=== PATIENT | male | born 1975 | race Caucasian/White ===

== ENCOUNTER 2021-11-29 04:10 | Emergency (ER) | payer SELFPAY ==
[~2021-11-29] VITALS: Ht 172.7 cm; Wt 108.9 kg
[2021-11-29 04:23] VITALS: BP 138/84
[2021-11-29] MEDS ORDERED: FLUORESCEIN SODIUM OPHTH 1 EA STRIP ONE ×2 (04:40→04:44)
[2021-11-29] MEDS ORDERED: TETRACAINE HCL 0.5% OPHTALMIC 15 ML BOTTLE OP ONE (05:00)
[2021-11-29] MEDS ORDERED: FLUORESCEIN SODIUM OPHTH 1 EA STRIP OP ONE (05:00)
[2021-11-29] MEDS ORDERED: ERYT3.5O9 LEFTEYE (05:05)
--- NOTE | 2021-11-29 05:32 | NUR ---
Patient discharged to home in stable condition. Written and verbal after care instructions given. Patient verbalizes understanding of instruction.
== END 2021-11-29 05:32 | disposition home or self-care (01) ==
LOC: ER 04:54
DX: T15.02XA Foreign body in cornea, left eye, initial encounter (principal); Z90.49 Acquired absence of other specified parts of digestive tract; T15.01XA Foreign body in cornea, right eye, initial encounter; W45.8XXA Other foreign body or object entering through skin, initial encounter; Y93.89 Activity, other specified; Y92.89 Other specified places as the place of occurrence of the external cause; Y99.8 Other external cause status